=== PATIENT | male | born 1950 | race Caucasian/White ===

== ENCOUNTER 2016-07-21 18:07 | Inpatient (IN) | payer MEDICARE, OTHER ==
--- NOTE | 2016-07-21 18:39 | ED ---
Chest Pain HPI - General Chief Complaint: Chest Pain Stated Complaint: SOB Time Seen by Provider: 07/21/16 18:07 Source: patient, family, RN/MD, EMS, RN notes reviewed, old records reviewed Mode of arrival: EMS - History of Present Illness Initial Comments: This is a 65-year-old male who was transferred for [facility] this facility for evaluation for chest pain and dyspnea. He had testing done at his retirement consultant today with also later had a echocardiogram he was noted to have a blood pressure 70/52 later even lower. It shortness of breath and exertional dyspnea. He had chest pain that when all day and just resolve a little while ago. He had initial workup done at the other facility. Pain is left shoulder mostly in nature. He recently was at [facility] and treated with antibiotics also on verapamil for irregular heartbeat. Patient this time we'll place no pain fevers chills or sweats. He did have a mildly elevated creatinine 1.7 with a troponin 0.05. He currently only a Plavix and aspirin. There is concern for possible second-degree AV block per the emergency physician at the other facility. Also of note a copy of the x- ray was sent but we could not make treated the image from the disc. MD Complaint: chest pain, other - Related Data Home Medications Medication Instructions Recorded Confirmed Albuterol Sulfate [Proventil Hfa] 1 - 2 puff INHALATION RT-Q6H PRN 07/21/16 Aspirin EC [Ecotrin Low Dose] 81 mg PO DAILY 07/21/16 07/21/16 Atorvastatin [Lipitor] 40 mg PO HS 07/21/16 07/21/16 Beclomethasone Dipropionate [Qvar 2 puff INHALATION RT-BID 07/21/16 07/21/16 80 mcg] Cilostazol [Pletal] 50 mg PO BID 07/21/16 07/21/16 Clopidogrel [Plavix] 75 mg PO DAILY 07/21/16 07/21/16 Levofloxacin [Levaquin] 500 mg PO DAILY 07/21/16 07/21/16 Lisinopril [Zestril] 10 mg PO DAILY 07/21/16 07/21/16 Montelukast [Singulair] 10 mg PO HS 07/21/16 07/21/16 Oseltamivir [Tamiflu] 75 mg PO BID 07/21/16 07/21/16 Pantoprazole Sodium [Protonix] 40 mg PO DAILY 07/21/16 07/21/16 Tamsulosin HCl [Flomax] 0.4 mg PO HS 07/21/16 07/21/16 Verapamil [Isoptin] 40 mg PO BID 07/21/16 07/21/16 traZODone HCL 50 mg PO HS 07/21/16 07/21/16 Allergies Allergy/AdvReac Type Severity Reaction Status Date / Time No Known Allergies Allergy Verified 07/21/16 19:10 Review of Systems ROS Statement: Those systems with pertinent positive or pertinent negative responses have been documented in the HPI. ROS Other: All systems not noted in ROS Statement are negative. EKG Findings - EKG Results: EKG: interpreted by BENJAMIN, sinus rhythm (Sinus rhythm a rate of 85 appear of 01 22 QRS duration 84 QT/QTC of 386/459 appears be a normal EKG no change seen from the one submitted from [facility].) Past Medical History Past Medical History: Asthma, COPD, CVA/TIA, Hyperlipidemia, Pneumonia Additional Past Medical History / Comment(s): peripheral artery disease History of Any Multi-Drug Resistant Organisms: None Reported Past Surgical History: Appendectomy, Orthopedic Surgery Additional Past Surgical History / Comment(s): cataract surgery left eye. three stents left leg, balloon right leg. Smoking Status: Former smoker Past Alcohol Use History: None Reported Past Drug Use History: None Reported General Exam - General Exam Comments Initial Comments: This is a well up well-nourished awake alert oriented 3 male he does appear dyspneic just with conversation. General appearance: alert, in no apparent distress Head exam: Present: atraumatic, normocephalic, normal inspection Eye exam: Present: normal appearance, PERRL, EOMI. Absent: scleral icterus, conjunctival injection, periorbital swelling ENT exam: Present: normal exam, mucous membranes moist Neck exam: Present: normal inspection. Absent: tenderness, meningismus, lymphadenopathy Respiratory exam: Present: normal lung sounds bilaterally. Absent: respiratory distress, wheezes, rales, rhonchi, stridor Cardiovascular Exam: Present: regular rate, normal rhythm, normal heart sounds. Absent: systolic murmur, diastolic murmur, rubs, gallop, clicks GI/Abdominal exam: Present: soft, normal bowel sounds. Absent: distended, tenderness, guarding, rebound, rigid Extremities exam: Present: normal inspection, full ROM, normal capillary refill. Absent: tenderness, pedal edema, joint swelling, calf tenderness Back exam: Present: normal inspection Neurological exam: Present: alert, oriented X3, CN II-XII intact Psychiatric exam: Present: normal affect, normal mood Skin exam: Present: warm, dry, intact, normal color. Absent: rash Course Vital Signs 07/21/16 07/21/16 07/21/16 18:08 18:16 18:18 Temperature 97.4 F L Pulse Rate 85 Pulse Rate [ 84 [employer] ] Respiratory 18 20 Rate Blood Pressure 128/65 Chest Pain MDM - MDM I did review the materials presented from the sending hospital. He x-ray the chest will be ordered I did discuss the case with the patient has and with Dr. Box who is the retirement consultant the request admission to. Patient will be admitted with consultation by cardiology and Dr. Peterson/Addi vincent. Disposition Clinical Impression: Unstable angina pectoris Disposition: ADMITTED IP TO THIS HOSP Condition: Stable
[2016-07-21] MEDS ORDERED: NITROGLYCERIN SL TABS 0.4 MG TAB SUBLINGUAL PRN (19:44)
[2016-07-21] MEDS ORDERED: HEPARIN SODIUM,PORCINE/D5W PMX 25,000 UNIT in DEXTROSE/WATER 1 500ML.BAG IV SCH (19:45)
[2016-07-21] MEDS ORDERED: ALBUTEROL NEBULIZED 2.5 MG/3 ML INHALATION PRN (19:46)
[2016-07-21] MEDS: BUDESONIDE 1 MG/2 ML NEBU INHALATION SCH (21:32)
[2016-07-21 21:45] VITALS: BMI 30.5
[2016-07-21] MEDS: VERAPAMIL 40 MG TAB PO SCH (21:57)
[2016-07-21] MEDS: CILOSTAZOL 100 MG TAB PO SCH (21:57)
[2016-07-21] MEDS: OSELTAMIVIR 75 MG CAP PO SCH (21:58)
[2016-07-21] MEDS: ATORVASTATIN 40 MG TAB PO SCH (21:58)
[2016-07-21] MEDS: MONTELUKAST 10 MG TAB PO SCH (21:58)
[2016-07-21] MEDS: TAMSULOSIN 0.4 MG CAP.ER.24H PO SCH (21:58)
[2016-07-21] MEDS: traZODone HCL 50 MG TAB PO SCH (21:58)
[2016-07-21] MEDS: NITROGLYCERIN OINT 1 INCH/GM PACKET TOPICAL SCH (22:01)
[2016-07-21] MEDS: DOCUSATE 100 MG CAP PO PRN (22:38)
[2016-07-21] MEDS: MORPHINE SULFATE 2 MG/ML SYRINGE IVP PRN (22:39)
[2016-07-21 22:44] LABS: Creatine Kinase 81 U/L (55-170)
[2016-07-21 22:57] LABS: Troponin I <0.012 ng/mL (0.000-0.034)
[2016-07-21 22:59] LABS: Creatine Kinase MB 2.6 ng/mL (0.0-2.4)
[2016-07-22] MEDS: MORPHINE SULFATE 2 MG/ML SYRINGE IVP PRN ×3 (04:00→11:32)
[2016-07-22] MEDS: NITROGLYCERIN OINT 1 INCH/GM PACKET TOPICAL SCH ×3 (04:50→17:59)
[2016-07-22 04:56] LABS: Cholesterol 135 mg/dL (<200); Creatine Kinase 63 U/L (55-170); HDL Cholesterol 52 mg/dL (40-60); Triglycerides 138 mg/dL (<150); Troponin I <0.012 ng/mL (0.000-0.034)
[2016-07-22] MEDS: BUDESONIDE 1 MG/2 ML NEBU INHALATION SCH (08:08)
[2016-07-22] MEDS ORDERED: ASPIRIN 325 MG TAB PO SCH (09:00)
[2016-07-22] MEDS ORDERED: LISINOPRIL 10 MG TAB PO SCH (09:00)
[2016-07-22 09:53] LABS: Basophils % (A) 1 %; CH 30.4; CHCM 32.2; Eosinophils # (A) 0.3 k/uL (0-0.7); Eosinophils % (A) 5 %; HCT 31.1 % (39.0-53.0); HDW 3.04; HGB 10.2 gm/dL (13.0-17.5); Hypochromasia Slight; Luc # (Auto) 0.23; Luc % (Auto) 4; Lymphocytes # (A) 0.6 k/uL (1.0-4.8); Lymphocytes % (A) 10 %; MCH 31.1 pg (25.0-35.0); MCHC 32.8 g/dL (31.0-37.0); MCV 94.6 fL (80.0-100.0); Mean Platelet Volume 6.7; Monocytes # (A) 0.6 k/uL (0-1.0); Monocytes % (A) 10 %; Neutrophils # (A) 4.3 k/uL (1.3-7.7); Neutrophils % (A) 70 %; RBC 3.28 m/uL (4.30-5.90); RDW 14.2 % (11.5-15.5); WBC (Perox) 6.91
[2016-07-22 10:05] LABS: Partial Thromboplastin Time 36.2 sec (22.0-30.0)
[2016-07-22 10:21] LABS: Anion Gap 7 mmol/L; Blood Urea Nitrogen 18 mg/dL (9-20); Calcium 8.8 mg/dL (8.4-10.2); Carbon Dioxide 27 mmol/L (22-30); Chloride 102 mmol/L (98-107); Glucose 112 mg/dL (74-99); Non-African American GFR(MDRD) >60 (>60 ml/min/1.73 sqM); Potassium 4.3 mmol/L (3.5-5.1); Sodium 136 mmol/L (137-145)
--- NOTE | 2016-07-22 10:32 | ECHOF ---
Referral Reason:Chest pain MEASUREMENTS -------- HEIGHT: 175.3 cm WEIGHT: 93.4 kg BP: 113/59 IVSd: 1.1 cm (0.6 - 1.1) LVIDd: 3.7 cm (3.9 - 5.3) LVPWd: 1.3 cm (0.6 - 1.1) IVSs: 1.2 cm LVIDs: 3.2 cm LVPWs: 1.2 cm Ao Diam: 3.2 cm (2.0 - 3.7) LA Diam: 3.9 cm (2.7 - 3.8) MV EXCURSION: 32.148 mm (> 18.000) MV EF SLOPE: 92 mm/s (70 - 150) MV E Cisco: 0.88 m/s MV DecT: 282 ms MV A Cisco: 1.00 m/s MV E/A Ratio: 0.88 AV maxP.92 mmHg AV meanP.77 mmHg RAP: 5.00 mmHg RVSP: 12.89 mmHg FINDINGS -------- Sinus rhythm. This was a technically adequate study. There is borderline concentric left ventricular hypertrophy. Overall left ventricular systolic function is low-normal with, an EF between 50 - 55 %. The right ventricle is normal in size. The left atrial size is normal. The right atrial size is normal. Peak/mean gradient across the Aortic Valve is 22.92mmHg / 11.77mmHg. Aov is stenotic with decrease opening. Mild mitral annular calcification present. Mild mitral regurgitation is present. Mild tricuspid regurgitation present. There is no evidence of pulmonary hypertension. The right ventricular systolic pressure, as measured by Doppler, is 12.89mmHg. The pulmonic valve was not well visualized. The aortic root size is normal. There is no pericardial effusion. CONCLUSIONS -------- 1. There is borderline concentric left ventricular hypertrophy. 2. The pulmonic valve was not well visualized. 3. Overall left ventricular systolic function is low-normal with, an EF between 50 - 55 %. 4. Peak/mean gradient across the Aortic Valve is 22.92mmHg / 11.77mmHg. 5. Aov is stenotic with decrease opening. 6. Mild mitral annular calcification present. 7. Mild mitral regurgitation is present. 8. Mild tricuspid regurgitation present. 9. There is no evidence of pulmonary hypertension. 10. The right ventricular systolic pressure, as measured by Doppler, is 12.89mmHg. MANAGER IMMUNOLOGY: Rosalind Dhillon RDCS
--- NOTE | 2016-07-22 11:07 | CONS ---
DATE OF CONSULTATION: Mr. Graves is a 65-year-old gentleman with a past history of smoking, COPD, who is under the care of Dr. Lisbeth Cherry. This gentleman apparently was doing a 6 minute walk test at his office, then after that he became short of breath and was hypotensive, transferred to [facility] where he was evaluated, his blood pressure was low. They gave him some fluids, his pressure came back. There was a question of bradycardia. Then he complained of some chest pressure, was transferred here from [facility]. EKG revealed sinus mechanism without significant ST-T changes. There are some nondiagnostic inferior Q waves, which do not suggest prior myocardial infarction. This gentleman also has 3 sets of troponins that are unremarkable, 2 of them were performed here. He complains of a vague nondescript chest pressure, seems very atypical. He is also short of breath. Denies any palpitations or syncope. He has history of peripheral arterial disease with having had some stents in his left leg, details are unavailable. He has also history of hypertension. He sees Dr. Liz in the office and in October of last year, he had a dobutamine Cardiolite stress test which revealed good myocardial perfusion and function. At the time of my evaluation, he is comfortable, but complains of shortness of breath with activity. PAST MEDICAL HISTORY: 1. Hypertension. 2. Hyperlipidemia. 3. History of for COPD with a past history of smoking. 4. He also has history of some bronchial asthma. Apparently he had some atrial tachycardia and has been treated with verapamil, seems to be doing well with verapamil. He had had a 24-hour DCG as well, that was unremarkable. His last stress test was from October of 2015 which did not reveal any ischemia. This was a dobutamine Cardiolite stress test. Medications at home include verapamil 40 mg b.i.d., trazodone, Flomax, lisinopril 10 mg daily, Plavix 75 mg daily, atorvastatin 40 mg daily, aspirin 81 mg daily, albuterol inhaler and Protonix. ALLERGIES: HYDROCODONE. On examination, blood pressure is 118/60, pulse rate is 70 per minute, regular. HEENT: Unremarkable. Fundus was not examined by me. Neck is supple. There is no JVD. I do not hear a carotid bruit. Heart exam reveals S1 and S2 heard normally. There is a short systolic murmur. Lungs reveal diminished air entry in bilateral lung junior. Abdomen is soft, nontender. Lower extremities reveal diminished pulses. Central nervous system grossly within normal limits. IMPRESSION: 1. Atypical chest pain. 2. Exacerbation of chronic obstructive pulmonary disease. 3. History of hypotension, probably patient may have been dehydrated. His troponins are normal, chest pain is atypical. 4. History of atrial tachycardia, on verapamil. RECOMMENDATIONS: I am recommending that we will obtain a BMP, a d-dimer and CBC and also a BNP. I will perform echocardiogram. I will request Dr. Lisbeth Cherry to see him from a cardiac standpoint. This patient also has a chronic kidney disease and creatinine is about 1.79. Based on these findings, I will make further recommendations. I do not believe we are dealing with any acute myocardial ischemia at this time. I will review the echocardiogram and then make further recommendations. We will also seek input from Dr. Lisbeth Cherry from a pulmonary standpoint. Thank you very much for the consult.
[2016-07-22] MEDS: CLOPIDOGREL 75 MG TAB PO SCH (11:26)
[2016-07-22] MEDS: LEVOFLOXACIN 500 MG TAB PO SCH (11:26)
[2016-07-22] MEDS: OSELTAMIVIR 75 MG CAP PO SCH ×2 (11:26→20:04)
[2016-07-22] MEDS: CILOSTAZOL 100 MG TAB PO SCH ×2 (11:27→20:02)
[2016-07-22] MEDS: PANTOPRAZOLE 40 MG TABLET PO SCH (11:27)
[2016-07-22] MEDS: ASPIRIN 81 MG CHEW PO SCH (11:27)
[2016-07-22] MEDS: LISINOPRIL 5 MG TAB PO SCH (11:28)
[2016-07-22] MEDS: VERAPAMIL 40 MG TAB PO SCH (11:28)
[2016-07-22] MEDS ORDERED: RX INFO: IV CONTRAST WAS GIVEN 1 EACH MISC MISCELLANE PRN (11:51)
--- NOTE | 2016-07-22 11:54 | P.CNPUL ---
History of Present Illness Consult date: 07/22/16 Reason for consult: dyspnea, chest pain Chief complaint: chest pain History of present illness: this is a 65-year-old gentleman who presented to [facility] from [facility]. The patient was supposed to get an echocardiogram at [facility] when he began having chest pain and dizziness. The patient was transferred to the emergency department. There were apparently fluctuations in his heart rate and blood pressure and he was subsequently transferred here. The patient has a known history of severe COPD. He states he feels like his breathing was doing okay however the chest pain and pressure was making it harder for him to breathe. The patient was recently started on antibiotics and Tamiflu for fever and cough. The patient states his temperature got up to 101 at home. He was feeling fatigued and having chills and rigors. The patient states he is not currently on steroids he finished his last dose last week. He did recently travel to [place]. Review of Systems All systems: negative Past Medical History Past Medical History: Asthma, COPD, CVA/TIA, Hyperlipidemia, Pneumonia Additional Past Medical History / Comment(s): peripheral artery disease History of Any Multi-Drug Resistant Organisms: None Reported Past Surgical History: Appendectomy, Orthopedic Surgery Additional Past Surgical History / Comment(s): cataract surgery left eye. three stents left leg, balloon right leg. Past Anesthesia/Blood Transfusion Reactions: No Reported Reaction Past Psychological History: No Psychological Hx Reported Smoking Status: Former smoker Past Alcohol Use History: None Reported Past Drug Use History: None Reported - Past Family History Mother Family Medical History: No Reported History Father Family Medical History: CVA/TIA Additional Family Medical History / Comment(s): CABG Medications and Allergies Home Medications Medication Instructions Recorded Confirmed Type Albuterol Sulfate [Proventil Hfa] 1 - 2 puff INHALATION RT-Q6H PRN 07/21/16 History Aspirin EC [Ecotrin Low Dose] 81 mg PO DAILY 07/21/16 07/21/16 History Atorvastatin [Lipitor] 40 mg PO HS 07/21/16 07/21/16 History Beclomethasone Dipropionate [Qvar 2 puff INHALATION RT-BID 07/21/16 07/21/16 History 80 mcg] Cilostazol [Pletal] 50 mg PO BID 07/21/16 07/21/16 History Clopidogrel [Plavix] 75 mg PO DAILY 07/21/16 07/21/16 History Levofloxacin [Levaquin] 500 mg PO DAILY 07/21/16 07/21/16 History Lisinopril [Zestril] 10 mg PO DAILY 07/21/16 07/21/16 History Montelukast [Singulair] 10 mg PO HS 07/21/16 07/21/16 History Oseltamivir [Tamiflu] 75 mg PO BID 07/21/16 07/21/16 History Pantoprazole Sodium [Protonix] 40 mg PO BID 07/21/16 07/21/16 History Tamsulosin HCl [Flomax] 0.4 mg PO BID 07/21/16 07/21/16 History Verapamil [Isoptin] 40 mg PO BID 07/21/16 07/21/16 History traZODone HCL 50 mg PO HS 07/21/16 07/21/16 History Allergies Allergy/AdvReac Type Severity Reaction Status Date / Time hydrocodone [From [place]] AdvReac Nausea & Verified 07/21/16 22:11 Vomiting Physical Exam Osteopathic Statement: *. No significant issues noted on an osteopathic structural exam other than those noted in the History and Physical/Consult. Vitals: Vital Signs Temp Pulse Pulse Pulse Resp BP BP 07/22/16 08:00 98.0 F 99 18 119/62 07/22/16 05:24 99 07/22/16 05:17 96 07/22/16 04:00 99.1 F 95 16 113/59 07/22/16 00:00 99.1 F 94 16 122/62 07/21/16 23:00 16 07/21/16 22:00 16 07/21/16 21:13 97.8 F 96 16 133/64 07/21/16 20:35 74 18 114/55 Pulse Ox 07/22/16 08:00 95 07/22/16 05:24 07/22/16 05:17 07/22/16 04:00 90 L 07/22/16 00:00 92 L 07/21/16 23:00 07/21/16 22:00 07/21/16 21:13 95 07/21/16 20:35 98 Intake and Output 07/21/16 07/22/16 07/22/16 22:59 06:59 14:59 Intake Total 168.333 Balance 168.333 Intake: Intake, IV Titration 168.333 Amount Heparin Sodium,Porcine/ 168.333 D5w Pmx 25,000 unit In Dextrose/Water 1 500ml. bag @ 10.651 UNITS/KG/HR 20 mls/hr IV .Q24H SETH Rx #:[id number] Other: # Voids 1 1 Weight 93.8 kg Gen.: Patient is alert and oriented 3, no acute distress Cardiovascular: Regular rate and rhythm, S1/S2 Lungs: Diminished otherwise clear Abdomen: Soft nontender nondistended positive bowel sounds Extremities: No edema Results - Laboratory Findings CBC and BMP: 07/22/16 09:36 07/22/16 09:36 PT/INR, D-dimer D-Dimer 0.75 mg/L FEU (<0.60) H 07/22/16 09:36 Abnormal lab findings: Abnormal Labs 07/21/16 07/22/16 07/22/16 22:08 02:35 09:36 RBC Hgb Hct Lymphocytes # APTT 41.9 H 36.2 H D-Dimer 0.75 H Sodium Glucose CK-MB (CK-2) 2.6 H* 07/22/16 07/22/16 09:36 09:36 RBC 3.28 L Hgb 10.2 L Hct 31.1 L Lymphocytes # 0.6 L APTT D-Dimer Sodium 136 L Glucose 112 H CK-MB (CK-2) Assessment and Plan Plan: acute chest pain acute exacerbation of COPD/asthma, severe persistent History of hypertension History of atrial tachycardia History of carotid artery disease History of peripheral vascular disease History of CVA/TIA Dyslipidemia History of tobacco abuse Anemia, normochromic normocytic Mild hyponatremia Acute kidney injury O2 to maintain saturation greater than or equal to 88% Will check CTA of the chest Bronchodilators Pulmicort Perforomist antibiotics: Levaquin Singulair Continue Tamiflu IV fluid hydration IV Solu-Medrol Cardiology recommendations Echocardiogram Continue patient's home medications GI and DVT prophylaxis Incentive spirometry and pulmonary hygiene Thank you for this consultation we'll continue to follow along
--- NOTE | 2016-07-22 12:43 | CT ---
EXAMINATION TYPE: CT angio chest DATE OF EXAM: 07/22/2016 12:34 PM COMPARISON: NONE HISTORY: Shortness of breath and cough CT DLP: 587.9 mGycm CONTRAST: CT chest with contrast and 3D reconstruction with MIP imaging is performed with IV Contrast, patient injected with 100 mL of Omnipaque 350. Contrast-enhanced CT of the chest was performed through the course of the pulmonary arteries with hakan g and mediastinal window settings submitted. 3D reconstruction with MIP imaging was also performed. PULMONARY ARTERIES: The pulmonary arteries and their major tributaries are patent. I do not see billy dence for sizable filling defect to suggest pulmonary embolic process. LUNGS: Upper lobe groundglass infiltrates are noted which may reflect acute inflammatory process. Mor e nodular densities are seen within the left lower lobe measuring 9.6 mm and 11 mm respectively. Foca l atelectasis is seen at the right lower lobe posteriorly and to a lesser extent the left lower lobe. No evidence for sizable effusion. Additional nodular density is seen within the lingula measuring 6. 4 mm. MEDIASTINUM: Thoracic aorta is of normal caliber . The heart is not enlarged. No evidence for media stinal mass. No mediastinal lymph nodes greater than 1cm. HILAR STRUCTURES: No evidence for mass. No hilar lymph nodes greater than 1 cm. UPPER ABDOMEN: No significant abnormality is seen. IMPRESSION: 1. No evidence for Pulmonary embolism at this time. 2. Nodular densities on left lung may be inflammatory or postinflammatory in nature however nodules o f other etiology are not excluded. Short-term follow-up is advised in 3-4 months. 2. Upper lobe groundglass infiltrates may reflect acute inflammatory process.
[2016-07-22] MEDS: SODIUM CHLORIDE 0.9% 1,000 ML IV SCH (12:48)
[2016-07-22] MEDS: IPRATROPIUM-ALBUTEROL 3 ML NEB INHALATION SCH ×4 (12:58→23:15)
[2016-07-22] MEDS: ACETAMINOPHEN TAB 500 MG TAB PO PRN (13:14)
[2016-07-22] MEDS ORDERED: FUROSEMIDE 10 MG/ML 4 ML VIAL IV STA (15:28)
[2016-07-22] MEDS: DOCUSATE 100 MG CAP PO PRN (16:20)
[2016-07-22] MEDS: methylPREDNISolone SOD SUCCI 40 MG/ML 1 ML VIAL IV SCH ×2 (16:30→23:38)
[2016-07-22] MEDS: traZODone HCL 50 MG TAB PO SCH (20:03)
[2016-07-22] MEDS: TAMSULOSIN 0.4 MG CAP.ER.24H PO SCH (20:03)
[2016-07-22] MEDS: ATORVASTATIN 40 MG TAB PO SCH (20:05)
[2016-07-22] MEDS: MONTELUKAST 10 MG TAB PO SCH (20:05)
[2016-07-22] MEDS: BUDESONIDE 0.5 MG/2 ML NEBU INHALATION SCH (21:27)
[2016-07-22] MEDS: FORMOTEROL FUMARATE 20 MCG/2 ML NEBU INHALATION SCH (21:27)
[2016-07-23] MEDS: IPRATROPIUM-ALBUTEROL 3 ML NEB INHALATION SCH ×6 (04:53→23:46)
[2016-07-23] MEDS: NITROGLYCERIN OINT 1 INCH/GM PACKET TOPICAL SCH ×4 (04:54→18:05)
[2016-07-23] MEDS: VERAPAMIL 40 MG TAB PO SCH ×3 (06:55→20:30)
[2016-07-23 07:05] LABS: Basophils % (A) 0 %; CHCM 31.9; Eosinophils % (A) 0 %; HCT 28.2 % (39.0-53.0); HDW 2.92; HGB 9.3 gm/dL (13.0-17.5); Hypochromasia Slight; Luc # (Auto) 0.07; Luc % (Auto) 1; Lymphocytes # (A) 0.4 k/uL (1.0-4.8); Lymphocytes % (A) 9 %; MCH 31.1 pg (25.0-35.0); MCHC 32.8 g/dL (31.0-37.0); MCV 94.6 fL (80.0-100.0); Mean Platelet Volume 6.7; Monocytes # (A) 0.2 k/uL (0-1.0); Monocytes % (A) 4 %; Neutrophils # (A) 4.1 k/uL (1.3-7.7); Neutrophils % (A) 86 %; RBC 2.99 m/uL (4.30-5.90); RDW 14.5 % (11.5-15.5); WBC 4.8 k/uL (3.8-10.6); WBC (Perox) 4.94
[2016-07-23] MEDS: FORMOTEROL FUMARATE 20 MCG/2 ML NEBU INHALATION SCH ×2 (07:07→18:46)
[2016-07-23] MEDS: BUDESONIDE 0.5 MG/2 ML NEBU INHALATION SCH ×2 (07:07→18:46)
[2016-07-23 07:22] LABS: Potassium 4.6 mmol/L (3.5-5.1); Total Bilirubin 0.5 mg/dL (0.2-1.3); Total Protein 5.8 g/dL (6.3-8.2)
[2016-07-23] MEDS: MORPHINE SULFATE 2 MG/ML SYRINGE IVP PRN ×2 (08:56→20:29)
[2016-07-23] MEDS: CLOPIDOGREL 75 MG TAB PO SCH (08:56)
[2016-07-23] MEDS: LEVOFLOXACIN 500 MG TAB PO SCH (08:56)
[2016-07-23] MEDS: methylPREDNISolone SOD SUCCI 40 MG/ML 1 ML VIAL IV SCH ×2 (08:56→15:51)
[2016-07-23] MEDS: PANTOPRAZOLE 40 MG TABLET PO SCH (08:57)
[2016-07-23] MEDS: LISINOPRIL 5 MG TAB PO SCH (08:57)
[2016-07-23] MEDS: ASPIRIN 81 MG CHEW PO SCH (08:57)
[2016-07-23] MEDS: CILOSTAZOL 100 MG TAB PO SCH ×3 (08:57→20:36)
[2016-07-23] MEDS: OSELTAMIVIR 75 MG CAP PO SCH (08:57)
[2016-07-23] MEDS: ENOXAPARIN 40 MG/0.4 ML SYRINGE SQ SCH (08:59)
[2016-07-23] MEDS: TAMSULOSIN 0.4 MG CAP.ER.24H PO SCH ×2 (09:04→21:41)
--- NOTE | 2016-07-23 09:29 | P.PN ---
Subjective Patient admitted with chest discomfort. Cardiac enzymes are normal ECG from yesterday was reviewed and patient interviewed again and repeat ECG does not show any ST segment abnormalities. Third set of cardiac enzymes ordered for this morning, pending Chest CTA no pulmonary embolism upper lobe groundglass infiltrates noted, not alert densities in the left lung noted 2-D echo and Doppler study shows ejection fraction of 50-55%. Peak gradient across the aortic valve 23 mmHg mean gradient 12 mmHg. Mild aortic stenosis mild mitral regurgitation mitral tricuspid regurgitation no pulmonary hypertension On examination Afebrile 97.5F, pulse rate in the 70s, blood pressure 123/59 mmHg Heart sounds S1 and S2 are normal no murmurs or gallops Breath sounds are reduced bilaterally but no rhonchi no crackles Ejection systolic murmur audible Abdomen is soft nontender No lower extremity edema Impression Patient admitted with chest discomfort, Last year he had the same symptoms and a dobutamine cardiac stress test was normal He has known peripheral vascular disease Lung abnormalities on chest CT noted History of atrial tachycardia on verapamil Dyslipidemia, LDL levels are excellent on statins Continue yomi inhibitors No evidence for pulmonary and was and that this time If his third Chris enzyme is normal then proceed with further pulmonary evaluation and I will see him in the office within the next 4-6 weeks Objective - Vital Signs Vital signs: Vital Signs Temp 97.5 F L 07/23/16 08:00 Pulse 88 07/23/16 08:00 Resp 16 07/23/16 08:00 BP 123/59 07/23/16 08:00 Pulse Ox 94 L 07/23/16 08:00 Intake & Output 07/22/16 07/23/16 07/23/16 18:59 06:59 18:59 Intake Total 400 240 Balance 400 240 Intake: Oral 400 240 Other: # Voids 1 - Labs CBC & Chem 7: 07/23/16 06:16 07/23/16 06:16 Labs: Abnormal Lab Results - Last 24 Hours (Table) 07/22/16 07/22/16 07/22/16 Range/Units 09:36 09:36 09:36 RBC 3.28 L (4.30-5.90) m/uL Hgb 10.2 L (13.0-17.5) gm/dL Hct 31.1 L (39.0-53.0) % Lymphocytes # 0.6 L (1.0-4.8) k/uL APTT 36.2 H (22.0-30.0) sec D-Dimer 0.75 H (<0.60) mg/L FEU Sodium 136 L (137-145) mmol/L BUN (9-20) mg/dL Creatinine (0.66-1.25) mg/dL Glucose 112 H (74-99) mg/dL ALT (21-72) U/L Total Protein (6.3-8.2) g/dL Albumin (3.5-5.0) g/dL 07/23/16 07/23/16 Range/Units 06:16 06:16 RBC 2.99 L (4.30-5.90) m/uL Hgb 9.3 L (13.0-17.5) gm/dL Hct 28.2 L (39.0-53.0) % Lymphocytes # 0.4 L (1.0-4.8) k/uL APTT (22.0-30.0) sec D-Dimer (<0.60) mg/L FEU Sodium (137-145) mmol/L BUN 23 H (9-20) mg/dL Creatinine 1.44 H (0.66-1.25) mg/dL Glucose 181 H (74-99) mg/dL ALT 19 L (21-72) U/L Total Protein 5.8 L (6.3-8.2) g/dL Albumin 3.0 L (3.5-5.0) g/dL
[2016-07-23] MEDS: SODIUM CHLORIDE 0.9% 1,000 ML IV SCH ×2 (09:46→15:53)
--- NOTE | 2016-07-23 09:58 | HP ---
DATE OF ADMISSION: REASON FOR ADMISSION: Chest pain. HISTORY OF PRESENT ILLNESS: This is a 65-year-old gentleman who apparently initially went to see Dr. Kevin Cherry for difficulty breathing over the last 2 to 3 weeks. Upon further review and work-up, patient was recommended to undergo an echocardiogram which was to be done at [facility]. During the procedure, the patient complained of chest pain. Hence was triaged to our hospital for further evaluation. EKG did not reveal ST-T wave changes. In regards to patient's cardiac history apparently has had a cardiac catheterization within the last 5 years; however, does not recall the degree of disease. Patient does have a significant PAD and carotid disease, status post a PCI to the left femoral vasculature and the carotid system as well. Patient's complaints have been progressive worsening of dyspnea associated with cough that is nonproductive in nature. Patient does have a history of COPD; however, states that his breathing has not improvement with a trial of steroids in the past. Denies having any orthopnea, PND, or chest pain at the time of my evaluation. Patient states that he gets short of breath with minimal exertion and at this time. No sick contacts, fevers, chills, nausea, vomiting, abdominal pain or diarrhea is reported. In the emergency room and CT angiogram was done did not reveal pulmonary embolism; however, noted. Irregular ground-glass opacities. Past medical history includes: COPD, cerebrovascular accident, dyslipidemia, pneumonia, PAD. Past surgical history includes a carotid endarterectomy, PCI to the left leg and PTCA to the right lower extremity vasculature. SOCIAL HISTORY: Former smoker. Denies alcohol or illicit drug use. FAMILY HISTORY: Premature cardiac disease reported in the family. Home medications include: 1. Albuterol. 2. Aspirin. 3. Lipitor. 4. QVAR. 5. Pletal. 6. Plavix. 7. Levaquin. 8. Lisinopril. 9. Singulair. 10. Tamiflu. 11. Protonix. 12. Verapamil. 13. Trazodone. Medication doses were reviewed and appropriately reconciled on admission. ALLERGIES: HYDROCODONE. PHYSICAL EXAM: VITALS: Temperature 98, heart rate is 99, respiratory rate 16, blood pressure is 113/59. GENERAL APPEARANCE: Alert, oriented x3, appears to be in somewhat of respiratory distress. CARDIOVASCULAR: Regular rate and rhythm. No murmurs appreciated. LUNGS: Diminished breath sounds. No rhonchi, wheezing or crackles appreciated. ABDOMEN: Soft, nontender, no organomegaly. Bowel sounds are intact. No masses noted. LOWER EXTREMITIES: No edema noted. No focal motor or sensory deficit noted. LABORATORY DATA: Hemoglobin 10.2, hematocrit 31.1, white count of 6, platelets of 429. Sodium 136, potassium 4.3, chloride 102, bicarb 27, BUN 18, creatinine 1.20. ASSESSMENT AND PLAN: 1. Atypical chest pain. 2. Acute exacerbation of chronic obstructive pulmonary disease. 3. History of hypertension. 4. History of atrial tachycardia. 5. History of peripheral arterial disease. 6. History of cerebrovascular accident. 7. Dyslipidemia. 8. Chronic kidney disease, stage III, unsure if there is an acute component. PLAN: CT of the chest is reviewed. Appears to have irregular edema. This is likely consistent with atypical pneumonia. Will need to rule out influenza pneumonitis. Echocardiogram was also reviewed, which showed normal ejection fraction. Right ventricular systolic pressure was within normal limits. Home Attendant's recommendations were reviewed and patient is to continue treatment. Patient will also be given a dose of Lasix. If patient improves with the current treatment as there appears to be no other good explanation other than atypical pneumonia, will continue the treatment with antibiotics for another 5 to 7 days. This was discussed with the patient and the family. Will follow the patient. DVT prophylaxis is to be maintained again.
[2016-07-23] MEDS: DOCUSATE 100 MG CAP PO PRN (11:57)
--- NOTE | 2016-07-23 16:11 | PN ---
Patient was seen on 07/23/2016. He was hemodynamically stable. He is less short of breath. On physical examination, blood pressure 104/50, respiratory rate 18, pulse rate 100, temperature 98.2, O2 sat on 2 L by nasal cannula is 91%. HEENT is unremarkable. Chest reveals prolonged expiration, no clear wheeze today. Cardiovascular system reveals an S1 and S2. Abdomen is soft. There is no edema. Chest. CTA is showing no evidence of PE, but there is ground glass opacities seen bilaterally. At this point in time, his clinical condition is consistent with an acute atypical pneumonia which may be due to viral etiology versus hypersensitivity pneumonitis. Severe asthma. Chronic obstructive pulmonary disease. Cardiac arrhythmia. At this point in time, continue bronchodilators, aerosolized steroids, IV steroids, montelukast and Tamiflu. Continue Levaquin to cover atypical organism. Increase his activity level. Depending on how he does, we shall make further changes to his care.
[2016-07-23] MEDS ORDERED: SODIUM CHLORIDE 0.65% NASAL SPRAY 44 ML BTL NASAL PRN (20:25)
[2016-07-23] MEDS: MONTELUKAST 10 MG TAB PO SCH (20:30)
[2016-07-23] MEDS: ATORVASTATIN 40 MG TAB PO SCH (20:30)
[2016-07-23] MEDS: OSELTAMIVIR 60 MG/10 ML ORAL SYRINGE PO SCH (20:30)
[2016-07-23] MEDS: traZODone HCL 50 MG TAB PO SCH (20:30)
--- NOTE | 2016-07-23 20:48 | PN ---
INTERVAL HISTORY: This is a 65-year-old gentleman that was admitted to the hospital with chest pain and progressive worsening of dyspnea on exertion. Patient underwent echocardiogram, which showed a normal ejection fraction with normal right ventricular systolic pressure. Thereafter patient has had a remote history of smoking and the diagnosis of COPD treatment for an acute exacerbation has been started. Today patient was seen at bedside and states that his breathing is improved. He is able to ambulate down the hallway, which is significantly better than on admission where he was short of breath with minimal exertion. Currently off oxygen. Denies to have headaches, blurry vision, cough with chest pain, abdominal pain, urinary urgency, frequency, or diarrhea. OBJECTIVE DATA: Temperature 98.1, heart rate is 98, blood pressure 108/53, saturating 92% on room air. Respiratory rate is 18. GENERALLY: Patient appears to be alert, oriented x3. HEENT: The pupils are equal and reactive to light and accommodation. HEART: S1, S2 present. No murmur appreciated. LUNGS: Diminished breath sounds. No rhonchi or wheezing or crackles appreciated. ABDOMINAL EXAM: Soft, nontender, no organomegaly appreciated. GENITOURINARY: No Shukla in place. EXTREMITIES: Pulses can be palpated distally. Denies any tenderness on gross palpation. SKIN: On a gross skin exam does not appear to have any purpura or any skin rashes that were noted. NEUROLOGICALLY: Grossly cranial nerves 2-12 intact. No motor or sensory deficits noted. Laboratory data include hemoglobin 9.3, hematocrit 28.2. White count 4.8, platelets of 384. Sodium 139, potassium 4.6, chloride 103, bicarb 26, BUN 23, creatinine of 1.44. Influenza negative. ASSESSMENT AND PLAN: 1. Acute exacerbation of chronic obstructive pulmonary disease. 2. Chronic kidney disease stage III with an acute component likely secondary to diuresis. 3. Acute tracheobronchitis causing #1. 4. Essential hypertension. 5. Sinus tachycardia. 6. Peripheral artery disease. 7. History of transient ischemic attack. PLAN: Continue ongoing care. Patient is improved. We will observe the patient another 24 hours. Will likely discharge the patient tomorrow. Patient is encouraged to ambulate. Did discuss patient limitations as this is the nature of the disease. Patient will have limited physical endurance secondary to significant diminished lung function. Encourage ambulation. Vitals are stable.
[2016-07-23] MEDS: ACETAMINOPHEN TAB 500 MG TAB PO PRN (22:40)
[2016-07-24] MEDS: methylPREDNISolone SOD SUCCI 40 MG/ML 1 ML VIAL IV SCH ×2 (00:15→08:53)
[2016-07-24] MEDS: NITROGLYCERIN OINT 1 INCH/GM PACKET TOPICAL SCH ×3 (00:16→13:00)
[2016-07-24] MEDS: IPRATROPIUM-ALBUTEROL 3 ML NEB INHALATION SCH ×3 (03:14→11:36)
[2016-07-24] MEDS: BUDESONIDE 0.5 MG/2 ML NEBU INHALATION SCH (07:17)
[2016-07-24] MEDS: FORMOTEROL FUMARATE 20 MCG/2 ML NEBU INHALATION SCH (07:17)
[2016-07-24 08:03] VITALS: RESP 16
[2016-07-24] MEDS: OSELTAMIVIR 60 MG/10 ML ORAL SYRINGE PO SCH (08:51)
[2016-07-24] MEDS: ENOXAPARIN 40 MG/0.4 ML SYRINGE SQ SCH ×2 (08:51→09:02)
[2016-07-24] MEDS: VERAPAMIL 40 MG TAB PO SCH (08:52)
[2016-07-24] MEDS: PANTOPRAZOLE 40 MG TABLET PO SCH (08:52)
[2016-07-24] MEDS: TAMSULOSIN 0.4 MG CAP.ER.24H PO SCH (08:52)
[2016-07-24] MEDS: CILOSTAZOL 100 MG TAB PO SCH (08:52)
[2016-07-24] MEDS: CLOPIDOGREL 75 MG TAB PO SCH (08:52)
[2016-07-24] MEDS: ASPIRIN 81 MG CHEW PO SCH (08:52)
[2016-07-24] MEDS: LEVOFLOXACIN 500 MG TAB PO SCH (08:52)
[2016-07-24] MEDS: LISINOPRIL 5 MG TAB PO SCH (08:52)
[2016-07-24 12:24] VITALS: BP 117/59; PULSE 94; TEMP 97.8
--- NOTE | 2016-07-24 13:46 | PN ---
DATE OF SERVICE: 07/24/2016. He has been hemodynamically stable. He is less short of breath. On physical examination, his respiratory rate 16, pulse rate 94, temperature 97.5, blood pressure 133/61, O2 sats on room air is 96%. HEENT: Unremarkable. Chest reveals wheeze on forced expiration. Cardiovascular system reveals an S1, S2. ABDOMEN: Soft. There is no pedal edema. IMPRESSION: 1. Severe asthma with acute exacerbation. 2. Atypical pneumonia which may be due to a viral etiology versus hypersensitivity pneumonitis. At this point in time, agree with possible discharge planning with a slow prednisone taper. Keep him on 60 mg a day until seen by us in about 48 hours. Continue him on Levaquin and Tamiflu. Continue him on his other inhalation treatments including Pulmicort. He will follow up in our office in about 48 hours. Agree with discharge planning at this time.
--- NOTE | 2016-07-25 11:36 | DS ---
DATE OF ADMISSION: 07/24/2016 DATE OF DISCHARGE: 07/24/2016 HOSPITAL COURSE: This is a 65-year-old gentleman that was admitted to the hospital with an acute exacerbation of chronic obstructive pulmonary disease. Patient was having progressive worsening of dyspnea in the recent times and there was some concern for cardiac etiology as patient does a significant vasculopathy. Does have PAD and carotid disease. Today patient appears to be doing well, states that he was able to ambulate around the unit without much difficulty which is significantly improved since initial day of hospitalization. Patient underwent echocardiogram, which showed normal right ventricular systolic pressure at night. Normal ejection fraction. On the day of discharge, patient's not having any headaches, blurry vision, nausea, vomiting, diarrhea. PHYSICAL EXAM: On the day of discharge: LUNGS: Diminished breath sounds air movement noted. No rhonchi or wheezing or crackles. HEART: S1, S2 heard, regular rate and rhythm. No murmurs appreciated. ABDOMEN: Soft, nontender, no organomegaly. NEUROLOGICAL: No focal motor or sensory deficits noted. DISCHARGE DIAGNOSES: 1. Acute exacerbation of chronic obstructive pulmonary disease secondary to tracheobronchitis. 2. Peripheral arterial disease. 3. History of cerebrovascular accident. 4. Dyslipidemia. 5. History of hypertension. 6. Gastroesophageal reflux disease. PLAN: No new medications were added. Patient does have prednisone 10 mg at home. Was recommended to take 60 mg p.o. daily x3 days and to follow up with Dr. Lisbeth Cherry by then. Further recommendations per clinical progress would be made at that time by Dr. Cherry. Patient is also to complete a course of Tamiflu as there was some suspicion for influenza. Initial screen was negative. However, an IgM was not performed. Patient is improved. Discharged home in a stable condition.
== END 2016-07-24 12:57 | disposition home or self-care (01) | DRG 191 ==
LOC: EC 18:07 → 3OBS 19:44 → 3SUR 07-23 18:30 → OBSVTOIN 07-24 11:46
PROVIDERS: ADMIT Hospitalist; ATTEND Hospitalist
DX: J44.0 Chronic obstructive pulmonary disease with (acute) lower respiratory infection (principal); J45.51 Severe persistent asthma with (acute) exacerbation; N17.9 Acute kidney failure, unspecified; E87.1 Hypo-osmolality and hyponatremia; I47.1 Supraventricular tachycardia; I08.3 Combined rheumatic disorders of mitral, aortic and tricuspid valves; N18.3 Chronic kidney disease, stage 3 (moderate); J44.1 Chronic obstructive pulmonary disease with (acute) exacerbation; K21.9 Gastro-esophageal reflux disease without esophagitis; I12.9 Hypertensive chronic kidney disease with stage 1 through stage 4 chronic kidney disease, or unspecified chronic kidney disease; T50.2X5A Adverse effect of carbonic-anhydrase inhibitors, benzothiadiazides and other diuretics, initial encounter; J20.9 Acute bronchitis, unspecified; D64.9 Anemia, unspecified; E78.5 Hyperlipidemia, unspecified; I73.9 Peripheral vascular disease, unspecified; Z95.820 Peripheral vascular angioplasty status with implants and grafts; Z90.49 Acquired absence of other specified parts of digestive tract; Z86.73 Personal history of transient ischemic attack (TIA), and cerebral infarction without residual deficits; Z87.891 Personal history of nicotine dependence; Z79.02 Long term (current) use of antithrombotics/antiplatelets; Z79.82 Long term (current) use of aspirin; Z79.899 Other long term (current) drug therapy
CPT/HCPCS: 71275; 80048; 80053; 80061; 82550; 82553; 83880; 84484; 85025; 85379; 85730; 87502; 93005; 93306; 94640; 94760; 96365; 96366; 96372; 96375; 96376; 99285